=== PATIENT | female | born 1990 | race Caucasian/White ===

== ENCOUNTER 2025-02-18 13:24 | Outpatient (AMB) | payer OTHER, SELFPAY ==
--- NOTE | 2025-02-18 13:21 | MHC.PC.OV ---
Vital Signs 02/18/25 13:27 Height 5 ft 4.96 in Weight 171 lb 6 oz BMI 28.6 BP 125/69 Blood Pressure Location Rt brachial Position Sitting Respiration 20 Pulse 57 Pulse Source Pulse Oximeter Temp 97.9 F Temp Source Temporal Artery Scan Pulse Oximetry (%) 100 Oxygen Delivery Method Room Air Intake Visit Reasons: establish care [employer] Required: No Accompanied by: Self / Same As Patient Allergies No Known Allergies Allergy (Verified 02/18/25 14:00) Medication List - Last Reconciled 02/18/25 by Darshana Villeda PA-C No Known Home Meds Tobacco use date assessed: 02/18/25 Dental Screening Dental Screen Date: 02/18/25 Did you have a dental visit in the last 12 months?: Yes HPI establish care HPI Details The patient is a 34-year-old female presenting for a annual physical exam visit and to establish care. She reports no significant past medical history and has not been on any medications except for control. The patient has a family history of colon cancer, with her aunt diagnosed at age 64. It was discussed that she should undergo colon cancer screening at age 40, earlier than the standard recommendation, due to this family history. During the physical examination, a heart murmur was detected, which was not previously known to the patient. The patient denies any symptoms such as chest pain, dyspnea, or syncope, and has no history of cardiovascular issues. A family history of myocardial infarction was noted, with the patient's grandfather having from a heart attack. 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 - Family: Has a 4-year-old daughter. - Lifestyle: Denies smoking and reports regular dental visits. [facility] Medical History (Updated 02/18/25 @ 14:06 by Darshana Villeda PA-C) Preventative health care Annual physical exam Heart murmur Family History (Updated 02/18/25 @ 14:07 by Darshana Villeda PA-C) Mother No problems noted. Father No problems noted. Paternal Grandfather Myocardial infarction, Onset Age: 51 Social History Housing: House Patient Tobacco Use Status: Never used Tobacco service: No Current occupational status: employed Cognitive needs: No Hearing needs: No Vision needs: No Questionnaire PHQ-9 Over the last 2 weeks, how often have you been bothered by any of the following problems? 1. Little interest or pleasure in doing things: not at all 2. Feeling down, depressed, or hopeless: not at all 3. Trouble falling or staying asleep, or sleeping too much: not at all 4. Feeling tired or having little energy: not at all 5. Poor appetite or overeating: not at all 6. Feeling bad about yourself - or that you are a failure or have let yourself or your family down: not at all 7. Trouble concentrating on things, such as reading the newspaper or watching television: not at all 8. Moving or speaking so slowly that other people could have noticed. Or the opposite - being so fidgety or restless that you have been moving around a lot more than usual: not at all 9. Thoughts that you would be better off or of hurting yourself in some way: not at all Total score: 0 Depression Screening Interpretation: Negative Depression Screening Done: Yes 31429 - PHQ-9 Billing: Yes Source: Developed by Drs. Minh Spencer, Jessica Worrell, Ajit Bragg and colleagues, with an educational faith from [employer]. Thrive Questionnaire Date Thrive assessed: 02/18/25 I am a: Patient What is your living situation today?: I have a steady place to live Within the past 12 months, did the food you bought not last and you didn't have the money to get more?: Never true Within the past 12 months, did you worry whether your food would run out before you got money to buy more?: Never true Do you have trouble paying for medicines?: No Do you have trouble getting transportation to medical appointments?: No Do you have trouble paying your heating and electricity bill?: No Do you have trouble taking care of your child, family member or friend?: No Do you have trouble with day-to-day activities such as bathing, preparing meals, shopping, managing finances, etc.?: No Are you currently unemployed and looking for a job?: Yes Are you interested in more education?: No THRIVE Score: 0 AUDIT C Alcohol Use Questionnaire (AUDIT-C) 1. How often do you have a drink containing alcohol?: 2-3 times a week 2. How many drinks containing alcohol do you have on a typical day when you are drinking?: 1 or 2 3. How often do you have six or more drinks on one occasion?: Never Total Score: 3 Score Reviewed/Action Taken: No GRANT-7 AMB Questionnaire GRANT-7 Date GRANT - 7 assessed: 02/18/25 Feeling nervous, anxious, or on edge: 0 = Not at all Not being able to stop or control worryin = Not at all Worrying too much about different things: 0 = Not at all Trouble relaxin = Not at all Being so restless that it is hard to sit still: 0 = Not at all Becoming easily annoyed or irritable: 0 = Not at all Feeling afraid as if something awful might happen: 0 = Not at all Total GRANT-7 score (0-4 normal; 5-9 mild; 10-14 moderate; 15-21 severe): 0 Source: Developed by Drs. Minh Spencer, Jessica Worrell, Ajit Bragg and colleagues, with an educational faith from [employer]. GRANT-7 Assessment Billing GRANT-7 Assessment Tool: GRANT-7 Assessment 82321 Review of Systems Const Details: - Cardiovascular: Denies chest pain, dyspnea, or syncope. - Gastrointestinal: Denies black or bloody stools, unintentional weight loss. - Genitourinary: Denies dysuria. - Neurological: Denies hearing or vision problems. All systems reviewed & are unremarkable except as noted in HPI and below Physical exam (Primary Care) Vital Signs: Last Vital Signs Temp 97.9 F 02/18/25 13:27 Pulse 57 02/18/25 13:27 Resp 20 02/18/25 13:27 BP 125/69 02/18/25 13:27 Pulse Ox 100 02/18/25 13:27 Oxygen Delivery Method Room Air 02/18/25 13:27 Care Plan Goal for BP management: <140/90 at Goal BMI result Body Mass Index 28.6 BMI Assessment/Plan discussion: High BMI High, discussed plan: lifestyle, weight reduction, dietary, physical activity, alcohol moderation and other Tobacco/Smoking Status: Tobacco use Status Tobacco use date assessed 02/18/25 02/18/25 13:33 Patient Tobacco Use Status Never used Tobacco 02/18/25 13:33 PHQ-9: PHQ-9 Score PHQ-9: Total score 0 02/18/25 13:36 Depression Screening Interpretation: Negative Thrive Assessment: Date of Thrive Assessment Date Thrive assessed 02/18/25 02/18/25 13:33 Const Other: Appearance: Alert. Oriented X3. No acute distress. Head: Normal external exam. Normocephalic. Atraumatic. Eyes: Pupils are equal, round, and reactive to light. Extraocular movements intact. Conjunctiva and sclera normal. Eyelids normal. Ears: External auditory canal normal. Tympanic membranes normal. Throat: Pharynx normal. Uvula midline. Moist mucous membranes. Neck: Normal inspection. Neck supple. Full range of motion. No adenopathy. Thyroid Normal. No meningeal signs. No neck mass noted. Cardiovascular: Heart rate normal. Heart sound reveals a murmur. Pulses normal throughout. Respiratory: No respiratory distress. Painless inspiration. Breath sounds normal. No wheezes/rales/rhonchi noted. Chest nontender. No accessory muscle usage noted or decreased air movement noted. Abdomen: Soft and nontender. Bowel sounds normal in all 4 quadrants. No distention noted. No organomegaly noted. No visible injury noted. Back: No costovertebral angle tenderness. Full range of motion noted. Skin: Skin warm and dry. Normal skin color. Normal skin turgor. No rashes/lesions/lacerations noted. Extremities: No lower extremity edema. Extremities exhibit normal range of motion. Extremities nontender. Neuro: Oriented X 3. No motor deficit. No sensory deficit. Reflexes normal. Office Procedures Flu Questionnaire Does the patient have a severe egg allergy?: No Does the patient have severe life threatening allergies?: No Does the patient have a fever or illness today?: No Has the patient ever had Guillain-Roosevelt Syndrome?: No Has the patient ever had any past reaction to a flu shot?: No Immunizations Fluarix [id number] (PF) 45 mcg (15 mcg x 3)/0.5 mL IM syringe Performing Provider: Darshana Villeda PA-C Performing Location: [facility] Documented (not given) by: Dinah Noe CMA on 02/18/25 13:36 Reason Not Given: Patient Refused Coding Level of Care Code New Pt Level 4 (34461) New Pt Prev Care 18-39yr(40850 Diagnoses Annual physical exam Z00.00 Heart murmur R01.1 Preventative health care Z00.00 Additional Codes PHQ-9 - 11591 - PHQ-9 Billing: Yes ([id number]) GRANT-7 Assessment Billing - GRANT-7 Assessment Tool: GRANT-7 Assessment 55254 ([id number]) Assessment & Plan Assessment & Plan (1) Annual physical exam: Code(s): Z00.00 - Encounter for general adult medical examination without abnormal findings Category: Medical (2) Heart murmur: Code(s): R01.1 - Cardiac murmur, unspecified Category: Medical Plan: The patient was found to have a heart murmur during the examination, which was not previously known. An echocardiogram was recommended to assess the murmur further and rule out any underlying structural abnormalities. (3) Preventative health care: Code(s): Z00.00 - Encounter for general adult medical examination without abnormal findings Category: Medical Plan: Due to a family history of colon cancer, it was recommended that the patient undergo colon cancer screening at age 40. This is earlier than the standard recommendation due to her aunt's diagnosis at age 64. Plan Plan Patient was informed and verbally consented to the use of an ambient scribe for clinic note documentation during this visit. 1. Heart Murmur The patient was found to have a heart murmur during the examination, which was not previously known. An echocardiogram was recommended to assess the murmur further and rule out any underlying structural abnormalities. 2. Preventative Care: Colon Cancer Screening Due to a family history of colon cancer, it was recommended that the patient undergo colon cancer screening at age 40. This is earlier than the standard recommendation due to her aunt's diagnosis at age 64. During the visit, I discussed the incidental finding of a heart murmur with the patient and recommended an echocardiogram to further evaluate the condition. We also reviewed her family history of colon cancer and advised that she undergo screening at age 40, earlier than the standard recommendation, due to her aunt's diagnosis. I explained the importance of monitoring the heart murmur and the potential need for follow-up with cardiology if necessary. Orders: Orders C Reactive Protein Today Z00.00 - Encounter for general adult medical examination without abnormal findings Comprehensive [place]. Panel Fast Today Z00.00 - Encounter for general adult medical examination without abnormal findings Hemoglobin A1c Today Z00.00 - Encounter for general adult medical examination without abnormal findings Lipid Panel Today Z00.00 - Encounter for general adult medical examination without abnormal findings Liver Panel Today Z00.00 - Encounter for general adult medical examination without abnormal findings Vitamin B12 and Folate Today Z00.00 - Encounter for general adult medical examination without abnormal findings Vitamin D 25-OH Total Today Z00.00 - Encounter for general adult medical examination without abnormal findings CA echo transthoracic complete Today R01.1 - Cardiac murmur, unspecified Influenza [id number] Immunization Today Z23 - Encounter for immunization Complete Blood Count Auto Diff Today Z00.00 - Encounter for general adult medical examination without abnormal findings Magnesium Today Z00.00 - Encounter for general adult medical examination without abnormal findings TSH reflex Free T4 Today Z00.00 - Encounter for general adult medical examination without abnormal findings UA CC w/rflx Micro + Cult Today Z00.00 - Encounter for general adult medical examination without abnormal findings Patient Instructions: - Schedule an echocardiogram to evaluate the heart murmur. - Plan for colon cancer screening at age 40 due to family history. - Monitor for any symptoms such as chest pain, shortness of breath, or syncope and seek medical attention if they occur. - Follow up with the clinic if any new symptoms arise or if there are concerns about the heart murmur.
[2025-02-18 13:27] VITALS: BP 125/69; PULSE 57; RESP 20; TEMP 36.6; O2SAT 100; BMI 28.6
== END 2025-02-18 13:55 | disposition home or self-care (01) ==
LOC: HO.HMCSH 13:24
PROVIDERS: PCP Internal Medicine; Visit Provider Physician Assistant Medical
DX: Z00.00 Encounter for general adult medical examination without abnormal findings (principal); R01.1 Cardiac murmur, unspecified; Z23 Encounter for immunization

== ENCOUNTER → 2025-02-18 13:24 | Outpatient (BNVA) | payer OTHER, SELFPAY | PROVIDERS: PCP Internal Medicine; Visit Provider Physician Assistant Medical | DX: Z00.00 Encounter for general adult medical examination without abnormal findings (principal); R01.1 Cardiac murmur, unspecified | CPT/HCPCS: 96127 ==

== ENCOUNTER → 2025-03-28 07:50 | Outpatient (REF) | payer OTHER, SELFPAY ==
--- OUTSIDE RECORDS SUMMARY | 2025-03-28 07:54 | XMS_ITS | Data Portability ---
Author Organization [facility] [address] Address [address] [place] [address] Assessment No assessment recorded. Plan of Treatment Reminders Order Date Submit Date Provider Last Modified By Organization Details Last Modified Time Details Appointments None recorde d. Lab rapid flu (A+B) 024 06/21/19 24 [facility], [address] [place] [address], [id number], 11:19:25 Referral None recorde d. Procedures None recorde d. Surgeries None recorde d. Imaging None recorde d. Medication Orders None recorde d. Patient TargetsNo targets recorded. Patient InstructionsNo instructions recorded. Reason for Referral None Reported. Results Created Date Observation Date Name Description Value Unit Range Abnormal Flag Note LastModifiedBy Organization Detail LastModifiedTime 06/21/19 24 06/21/2023 rapid flu (A+B) Unknown Analyte yes Not Available [address], [address], 06/21/2023 11:08:50 06/21/19 24 06/21/2023 rapid flu (A+B) Unknown Analyte negati ve Not Available [facility] [address], [address], 06/21/2023 11:08:50 06/21/19 24 06/21/2023 rapid flu (A+B) Unknown Analyte negati ve Not Available [facility] [address] [place], [address], 06/21/2023 11:08:50 Result Notes None recorded. Problems No Known Problems Medical Equipment None Reported. Allergies No known drug allergies Medications Not known to be on any medication Vitals Date Recorded Body height Body mass index (BMI) Body weight Pain severity - 0-10 verbal numeric rating [Score] - Reported Heart rate Respiratory rate Oxygen saturation Oxygen saturation in Arterial blood by Pulse oximetry Systolic And Diastolic Provider Name and Address Organization Details Last Updated DateTime 4 162.56 cm 28.3 kg/m2 12941.7 4 g 6 86 /min 18 /min 99 % 99 % 116/79 mm[Hg] Noris Carney PA - [facility] 11:08:10 Social History Question Answer Notes LastModified by [employer] Details LastModified Time Tobacco Smoking Status Never Smoker Noris Carney monik PA - [facility] 06/21/2023 11:08:28 What Is Your Relationship Status? Information not available 06/21/2023 Have You Recently Traveled Abroad? No Information not available 06/21/2023 Are You Currently In School? No Information not available 06/21/2023 Sex: Unknown Functional Status Question Answer Note LastModified by [employer] Details LastModified Time Do you use any illicit or recreational drugs? No Information not available 06/21/2023 Do you or have you ever used any other forms of tobacco or nicotine? No Information not available 06/21/2023 What is your level of alcohol consumption? None Information not available 06/21/2023 Are you currently employed? Yes Information not available 06/21/2023 Mental Status None recorded. Family History Relationship Description Onset Age of this Age Resolved Age Notes LastModified by Organization Details LastModified Time Father No current problems or disability Not available 06/21 11:08:00 Mother No current problems or disability Not available 06/21 11:08:00 Medical History No medical history recorded. Gynecological History Statement/Question Response Date of LMP 06/07/2023 Is there any chance of ? No LMP Approximate Obstetrics History GPAL:G 0 P 0 0 0 0 Past Encounters Encounter ID Performer Location Encounter Start Date Encounter Closed Date Diagnosis/Indication Diagnosis SNOMED-CT Code Diagnosis ICD10 Code Diagnosis IMO Codes Diagnosis Note [id number] [facility] [address] [place] [address] 06/21/2023 10:57:35 06/21/2023 11:26:38 Generalized aches and pains 38654096 R52 Patient presented with symptoms of upper respirator y infection. Advised to drink plenty of fluids, run a cool-mist humidifier in room at night, gargle salt water for sore throat, and get plenty of rest. Patient should avoid over-exert ion and reduce exposure to irritants such as smoke, cold, dry air, and dust.Treat ment currently involves symptomati c relief. Nasal sprays like nasonex and flonase (or generic) as well as neti pot to help clear sinuses Patient may take acetaminop hen or ibuprofen as directed to reduce fever and body aches.Anti histamine and decongesta nt usage was discussed and recommenda tions made.Sharla nt understood these instructio ns and will follow up in the office in 10 days to 2 weeks if symptoms not improving. ER if any shortness of breath/meghna st pain or worsening. Thank you for using [facility] today, please feel free to contact our office if you have any questions or concerns. Health Concerns Section Related Observation LastModified by Organization Detai ls LastModified Time None Recorded Concern Status LastModified by Organization Details LastModified Time None Recorded Advance Directives Directive None Recorded Payers Insurance Date Sequence Insurance Name Policy Number Policy Askew Covered Member ID Askew Member ID Guarantor Name 06/21/2023 1 [facility] [id number] Noris Cain [id number] Noris Cain Notes Date Note Type Note Provider Name and Address Organization Details Recorded Time 06/21/2023 text/html FeverReported by PatientHPIFor associated symptoms, patient reportscold symptomsbut reportsno rash,no lethargy,no weakness,no change in bowel/bladder habits, andno disorientation(body aches). For source of patient information, patient reportspatient arrived at urgent care ambulatoryandpatient. For quality, patient reportssymptoms worse in the evening. For severity, patient reportsimproving,high est fever:, exe720 degrees f. For duration, patient reportsconstant. For onset/timing, patient reportsfirst recorded: (2 dasys ago). For context, patient reportsno recent travel,no tick/insect bites, andno new medications. For modifying factors, patient reportsotc medication. [facility] [address] [place], [address], PA - [facility] 06/21/2023 11:24:29 OBGyn Episode No OBEpisode recorded.
--- NOTE | 2025-03-28 07:55 | CA_ITS ---
Transthoracic Echocardiogram Patient (Last, First, Middle): Noris Cain, Gender: F Date of : 1990 Age: 34 Procedure Date: 03/28/2025 Procedure Type: Transthoracic Echocardiogram Location: OP Height: 165.1 cm Weight: 77.57 kg BSA: 1.85 m2 Heart Rate: bpm BP: 125 / 69 mmHg Consumer Affairs Manager: DA Referring MD: Darshana Villeda PA-C Symptoms: R01.1 - Cardiac murmur, unspecified Study Quality: Adequate ECG Rhythm: Sinus Conclusions: - The left ventricular systolic function is normal. The calculated ejection fraction is 67% by biplane method. - No obvious valvular pathology seen on this study. Findings Left Ventricle Normal left ventricular cavity size. There is normal left ventricular wall thickness. The left ventricular systolic function is normal. The calculated ejection fraction is 67% by biplane method. There is no evidence of regional wall motion abnormalities. Diastolic function is normal for age. Right Ventricle Normal right ventricular cavity size and systolic function. Atria Both atria are normal in size. Aortic Valve The aortic valve structure and function is likely normal. There is no aortic valve stenosis. There is no aortic valve regurgitation. Mitral Valve The mitral valve appears normal. There is trace mitral valve regurgitation. There is no mitral valve stenosis. Pulmonic Valve The pulmonic valve is likely normal. Tricuspid Valve There is mild tricuspid valve regurgitation. There is no evidence of pulmonary hypertension. Great Vessels The asc aorta and aortic arch are normal in size. Venous The inferior vena cava is normal in size and collapses greater than 50% with inspiration. Pericardium/Pleural There is no evidence of pericardial effusion. Prior Study Comparison No prior study available for comparison. Recommendations, Care & Conclusions No obvious valvular pathology seen on this study. Measurements 2D Linear Measurements IVSd: 0.92 0.6-0.9/0.6-1.0 cm LVIDd: 4.68 3.9-5.3/4.2-5.9 cm LVIDd Index: 2.53 2.4-3.2/2.2-3.1 cm/m2 LVIDs: 3.37 2.0-3.6 cm LVPWd: 0.87 0.7-1.1 cm LA Diam: 3.20 2.7-3.8/3.0-4.0 cm LAIDs Index: 1.73 1.5-2.3 cm/m2 LV Mass: 174.42 67-162/88-224 g LV Mass Index: 94.28 43-95/49-115 g/m2 LVOT Diam: 2.10 3.0+(-)1.3 cm 2D Systolic Function EF 4C: 66.30 >55% EF 2C: 67.50 >55% EF BiP: 67.10 >55% Mitral Valve MV Pk E: 1.00 MV PK A: 0.54 MV Decel Time: 250.00 E/A: 1.80 E'Lateral: 13.50 E'Medial: 10.80 E/E' Med: 9.20 E/E' Lat: 7.40 PHT: 73.00 MVA PHT: 3.01 Decel [place]: 4.00 Aortic Valve AoV Pk Jaxon: 1.38 AoV Mn Jaxon: 0.96 AoV VTI: 0.33 AoV Pk Grad: 8.00 Aov Mn Grad: 4.00 DEVON Cont.VTI: 2.25 LVOT LVOT Pk Jaxon: 1.00 LVOT Mn Jaxon: 0.70 LVOT VTI: 0.22 LVOT Pk Grad: 4.00 LVOT Mn Grad: 2.00 LVOT Diam: 2.10 LVOT Area: 3.46 Diastolic Function MV Pk E: 1.00 MV Pk A: 0.54 E/A: 1.80 E'Medial: 10.80 E/E' Med: 9.20 E' Laterial: 13.50 E/E' Lat: 7.40 Right Ventricle TAPSE (mm): 34.30 TVS' Jaxon: 13.30 Tricuspid Valve TR Pk Jaxon: 2.06 TR Pk Grad: 17.00 RA Press: 3.00 RVSP: 20.00 Great Vessels Aorta Sinus of Valsalva: 2.49 2.0-3.5 cm Ao Asc: 2.50 2.1-3.4 cm Ao Arch: 2.20 Pulmonary Veins Pulm Vein S/D 0.90 Updated in Other Vendor System with Status of Final Fernandez Mcintyre MD electronically signed on 03/30/2025 10:09:05 AM with status of Final
== END ==
LOC: HO.CARD 07:50
PROVIDERS: PCP Physician Assistant Medical; Visit Provider Physician Assistant Medical
DX: R01.1 Cardiac murmur, unspecified (principal)
CPT/HCPCS: 93306

== ENCOUNTER → 2025-03-28 07:55 | Outpatient (BNV) | payer OTHER, SELFPAY | PROVIDERS: PCP Physician Assistant Medical; Visit Provider Internal Medicine | DX: R01.1 Cardiac murmur, unspecified (principal); I34.0 Nonrheumatic mitral (valve) insufficiency | CPT/HCPCS: 93306 ==